=== PATIENT | male | born 1965 | race Caucasian/White ===

== ENCOUNTER 2025-06-23 09:21 | Outpatient (AMB) | payer OTHER, SELFPAY ==
--- NOTE | 2025-06-23 09:25 | A.OFFVIS_ITS ---
Vital Signs 06/23/25 09:27 Height 5 ft 6 in Weight 199 lb BMI 32.1 BP 134/80 Blood Pressure Location Lt brachial Position Sitting Respiration 16 Pulse 80 Pulse Source Pulse Oximeter Pulse Oximetry (%) 97 Oxygen Delivery Method Room Air Intake Visit Reasons: VEREBROGENIC LOW BACK PAIN Tread Booker Required: No Accompanied by: Life Partner Allergies No Known Allergies Allergy (Verified 06/23/25 09:29) HPI Comments Details: The patient is a 60 year old male presenting for consultation for basivertebral nerve ablation for chronic low back pain. He reports a history of back pain for approximately 30 years since a disc herniation, with the pain becoming progressively worse over the last 10 years, which he attributes to arthritis. The pain is located in the lower back, around the L3-L5 area, and is sometimes worse on the right side. The patient's pain is exacerbated by bending, looking up for prolonged periods, and twisting movements, which significantly limits his physical activity. He notes difficulty with activities of daily living, including personal hygiene. Past treatments include physical therapy, muscle relaxers such as Flexeril, gabapentin, NSAIDs, ice, and heat. He has undergone medial branch radiofrequency ablation and received steroid injections every three months, but he is currently overdue for his next injection. Approximately five years ago, he had a spinal cord stimulator trial that was not helpful. His pertinent medical history includes a myocardial infarction in 2011, for which he received stents without subsequent cardiac damage. He is currently on a baby aspirin but no other blood thinners or Plavix. The patient reports a history of significant nausea and diaphoresis post-anesthesia. He was referred by [facility] for the BVN procedure, but a recent attempt to schedule it was cancelled by the anesthesiologist because his cardiac history necessitates the procedure be done in a hospital setting rather than an outpatient surgery center. This has led to a delay in his care. - Onset and Duration: Back pain started approximately 30 years ago after a disc herniation and has become significantly worse in the last 10 years due to arthritis. - Location: The pain is primarily in the lower back, described as the L3-L5 area, sometimes worse on the right side. - Radiation: The pain can be felt up into the middle of the back. - Associated Symptoms: The patient reports radicular pain down his legs and dragging his feet when his radiofrequency ablation treatment wears off. - Exacerbating Factors: Pain is worsened by bending over, looking up for extended periods, and twisting. - Interference with ADLs: He reports that his physical activity is very limited and he has difficulty with personal hygiene, such as wiping himself. - Analgesia: The patient takes Flexeril and gabapentin before bed to help with sleep. - He has previously received relief from medial branch radiofrequency ablations and steroid injections every three months, though he is currently overdue for his next injection. - Activities of Daily Living: The patient's pain has led to very limited physical activity and difficulty with personal hygiene. - His goal is to avoid spinal fusion surgery. - Adverse Effects: The patient reports experiencing significant nausea and profuse sweating after receiving anesthesia. - Affect: He expressed frustration regarding delays in his care. - Aberrant Drug Related Behaviors: The patient states he has never used narcotics recreationally and does not tolerate them well. Review of Systems Narrative - Musculoskeletal: Reports chronic low back pain, localized to the L3-5 area, which worsens with bending, looking up, and twisting. - Neurological: Reports pain radiating down his legs and dragging his feet when his previous RFA treatment is wearing off. - Gastrointestinal: Reports post-anesthesia nausea. - Constitutional: Reports profuse sweating (diaphoresis) after anesthesia. Physical Exam Exam Exam: General: awake, alert, oriented. Answers questions appropriately. Fully engaged in examination. Skin: warm, dry, intact HEENT: Normocephalic. Hearing intact. Cardiac: External chest normal in appearance. Respiratory: No cough, audible wheezing or stridor. Abdomen: without gross distension. MS: No obvious swelling or deformities. Able to transition from sit to stand unassisted. Ambulates with bilaterally normal heel strike and toe off Neurological: Oriented to person, place, time and situation. Thought process intact. No gait abnormalities appreciated. Psychiatric: Appropriate mood and affect. Good judgment and insight. Vital Signs: Last Vital Signs Pulse 80 06/23/25 09:27 Resp 16 06/23/25 09:27 BP 134/80 06/23/25 09:27 Pulse Ox 97 06/23/25 09:27 Oxygen Delivery Method Room Air 06/23/25 09:27 BMI result Body Mass Index 32.1 Results Reviewed Results Reviewed: 09/12/2024 FINDINGS: The conus is in its normal position at the level of L1. There is levos coliosis present. There are Modic type I reactive degenerative endplate changes present at L3-4. Throughout the lumbar spine, diffuse degenerative disc changes are present with varying degrees of disc desiccation. T12-L1: The central canal and neural foramen are patent. L1-L2: Mild disc bulging is present the central canal and neural foramen are patent. L2-3: Mild disc bulging is present. Mild facet osteoarthritic changes are present. There is moderate narrowing of the lateral recesses and the central canal. The neural foramen are patent bilaterally. L3-4: Moderate facet osteoarthritic changes are present and there is moderate narrowing of the lateral recesses. In addition, there is a large central and right paracentral disc extrusion present that extends caudad from the intervertebral disc space and compresses the right L4 nerve root. This severely narrows the central canal. There is a moderate-sized right facet effusion present. There is moderate to severe narrowing of the right neural foramen. The left neural foramen is patent. L4-5: Broad-based disc bulging is present. Moderate facet osteoarthritic changes are present. There are small bilateral facet effusions present. There is severe right foraminal stenosis present. There is moderate left foraminal stenosis present. The central canal is patent. L5-S1: Broad-based disc bulging is present. Moderate left and mild right facet osteoarthritic changes are present. There is severe narrowing present of the left neural foramen. The central canal and right neural foramen are patent. IMPRESSION: Spondylotic findings as described above that are most severe at L3-4 where there is a large disc extrusion present. Assessment & Plan Assessment & Plan (1) Vertebrogenic low back pain: Code(s): M54.51 - Vertebrogenic low back pain Category: Medical (2) Degenerative disc disease, lumbar: Code(s): M51.369 - Other intervertebral disc degeneration, lumbar region without mention of lumbar back pain or lower extremity pain Category: Medical (3) Chronic pain syndrome: Code(s): G89.4 - Chronic pain syndrome Category: Medical Plan The patient will proceed with L3-S1 basivertebral nerve (BVN) ablation for chronic vertebrogenic low back pain secondary to Modic changes seen on MRI. The booking order will be submitted to the viscosity inspector to obtain insurance authorization. The composition tile layer will attempt to transfer the prior authorization from the previous facility or resubmit for a new one, as the procedure must be performed in a hospital setting due to his cardiac history. Pre-procedural management will include holding his baby aspirin. The anesthesiology team will be notified of his history of post-anesthetic nausea and diaphoresis. The patient will be contacted by the scheduling team for a procedure date once insurance approval is secured, keeping in mind his travel plans starting July 27 for three weeks. Post-procedure expectations were discussed, including a few days of procedural soreness with a gradual return to normal activities. I had a detailed discussion with the patient regarding the plan to proceed with a basivertebral nerve (BVN) ablation, also known as the Intracept procedure, for his chronic axial low back pain. I explained that this procedure is a form of radiofrequency ablation that targets the nerve inside the vertebral body to treat pain from the Modic endplate changes seen on his MRI. I acknowledged the procedural limitations, noting that while it is performed under X-ray guidance, there is no guarantee that 100% of the target nerve tissue will be ablated. We reviewed his strong desire to avoid more invasive surgery, such as spinal fusion, and I concurred that fusion is generally reserved for structural instability and neurological preservation, not primarily for pain relief. I informed the patient that my team will handle the logistics of resubmitting for insurance authorization and scheduling the procedure in a hospital setting, which is necessary due to his history of coronary stents. I also addressed his concerns about post-anesthesia side effects, assuring him that this information would be communicated to the anesthesia team. Anticipatory guidance was provided regarding a recovery period of a few days of soreness, with the ability to resume light activities immediately. Patient was informed and verbally consented to the use of an ambient scribe for clinic note documentation during this visit. Patient Instructions: - We will move forward with scheduling basivertebral nerve ablation for your chronic low back pain. - Our surgical scheduling office will contact your insurance company to get the procedure approved at our hospital. - Once the procedure is approved, our composition tile layer will call you to set up a date for the surgery. - Before the procedure, you will get instructions on when to stop taking your baby aspirin. - Be sure to tell the anesthesiologist before the procedure that you get very s ick to your stomach and sweat a lot after being put to sleep. - This is an outpatient surgery, so you will go home the same day. - You can expect to be sore for a day or two after the procedure, but you will be able to get up and walk around right away. - Please let us know about your travel plans for July, as we will need to schedule your procedure around that. - If you have any questions in the meantime, please call our office. Coding Level of Care Code New Pt Level 4 (70615) Add On Problem Visit Only Diagnoses Vertebrogenic low back pain M54.51 Degenerative disc disease, lumbar M51.369 Chronic pain syndrome G89.4
[2025-06-23 09:27] VITALS: BP 134/80; PULSE 80; RESP 16; O2SAT 97; BMI 32.1
== END 2025-06-23 10:14 | disposition home or self-care (01) ==
LOC: HO.PMC 09:21
PROVIDERS: Visit Provider Registered Nurse Emergency
DX: M54.51 Vertebrogenic low back pain (principal); M51.369 Other intervertebral disc degeneration, lumbar region without mention of lumbar back pain or lower extremity pain; G89.4 Chronic pain syndrome
CPT/HCPCS: 99204; G2211

== ENCOUNTER → 2025-06-23 09:21 | Outpatient (BNVA) | payer OTHER, SELFPAY | PROVIDERS: Visit Provider Registered Nurse Emergency | DX: M51.360 Other intervertebral disc degeneration, lumbar region with discogenic back pain only (principal); G89.4 Chronic pain syndrome; I25.2 Old myocardial infarction; Z79.82 Long term (current) use of aspirin | CPT/HCPCS: 99202 ==